=== PATIENT | male | born 1995 | race Caucasian/White ===

== ENCOUNTER 2017-06-28 15:36 | Emergency (ER) | payer SELFPAY ==
[2017-06-28 19:46] VITALS: BP 133/70
== END 2017-06-28 19:46 | disposition home or self-care (01) ==
LOC: ED 15:36
DX: R11.2 Nausea with vomiting, unspecified (principal); R19.7 Diarrhea, unspecified
CPT/HCPCS: Q0162

== ENCOUNTER 2018-11-04 15:43 | Emergency (ER) | payer OTHER ==
[~2018-11-04] VITALS: Ht 170.2 cm; Wt 81.6 kg
[2018-11-04 16:01] VITALS: BP 133/75; Ht 170.2 cm; Wt 81.6 kg
== END 2018-11-04 16:48 | disposition other institution (70) ==
LOC: ED 15:43
DX: Z02.89 Encounter for other administrative examinations (principal); I10 Essential (primary) hypertension; E11.9 Type 2 diabetes mellitus without complications; V49.49XA Driver injured in collision with other motor vehicles in traffic accident, initial encounter; Y93.89 Activity, other specified; Y92.413 State road as the place of occurrence of the external cause; Y99.8 Other external cause status